=== PATIENT | female | born 1985 | race Caucasian/White ===

== ENCOUNTER 2016-12-23 09:44 | Inpatient (IN) | payer MEDICAID ==
[~2016-12-23] VITALS: Ht 162.6 cm; Wt 146.8 kg
[2016-12-23 12:51] VITALS: BP 130/61
[2016-12-23] MEDS ORDERED: OXYTOCIN 30U/ 0.9% NaCL 500ML 500 ML IV SCH (13:24)
[2016-12-23] MEDS ORDERED: LACTATED RINGERS 1,000 ML IVBOLUS ONE (13:30)
[2016-12-23] MEDS ORDERED: SODIUM CITRATE/CITRIC ACID 30 ML UDC PO ONE (13:30)
[2016-12-23] MEDS ORDERED: LACTATED RINGERS 1,000 ML IV SCH (13:30)
[2016-12-23] MEDS ORDERED: METOCLOPRAMIDE 5 MG/ML, 2ML IV ONE (13:30)
[2016-12-23] MEDS ORDERED: OXYTOCIN 30U/ 0.9% NaCL 500ML 500 ML ONE (13:31)
[2016-12-23] MEDS ORDERED: NEWBORN KIT ONE (13:43)
[2016-12-23] MEDS ORDERED: SODIUM CITRATE/CITRIC ACID 30 ML UDC ONE (13:43)
[2016-12-23] MEDS ORDERED: METOCLOPRAMIDE 5 MG/ML, 2ML ONE (13:43)
[2016-12-23] MEDS ORDERED: FENTANYL PF 100 MCG/2ML ONE (13:45)
[2016-12-23] MEDS ORDERED: HYDROmorphone 2 MG/ML, 1ML ONE (13:46)
[2016-12-23] MEDS: LACTATED RINGERS 1,000 ML IV SCH ×4 (14:13→19:49)
[2016-12-23] MEDS: OXYTOCIN 30U/ 0.9% NaCL 500ML 500 ML IV SCH (19:31)
[2016-12-23] MEDS ORDERED: ONDANSETRON 2MG/ML, 2ML IV PRN (20:00)
[2016-12-23] MEDS ORDERED: DIPH,PERTUSS(ACELL),TET VAC/PF NC IM-VACC PRN (20:00)
[2016-12-23] MEDS ORDERED: MEPERIDINE/PF 50 MG/ML IM PRN (20:00)
[2016-12-23] MEDS ORDERED: METHYLERGONOVINE 0.2 MG/ML IM PRN (20:00)
[2016-12-23 20:34] VITALS: BP 121/72
[2016-12-23] MEDS: OXYcodone/APAP 5/325MG TABLET PO PRN (21:58)
[2016-12-23] MEDS: KETOROLAC 30 MG/1 ML IVPush SCH (22:23)
[2016-12-23] MEDS: SIMETHICONE 80 MG CHEW TAB PO PRN (22:24)
[2016-12-23 23:10] VITALS: BP 118/75
[2016-12-24] MEDS: OXYcodone/APAP 5/325MG TABLET PO PRN (02:12)
[2016-12-24 03:00] VITALS: BP 114/73
[2016-12-24] MEDS: LACTATED RINGERS 1,000 ML IV SCH ×5 (03:31→19:31)
[2016-12-24] MEDS: KETOROLAC 30 MG/1 ML IVPush SCH ×4 (04:34→22:36)
[2016-12-24] MEDS: SIMETHICONE 80 MG CHEW TAB PO PRN ×2 (04:34→20:18)
[2016-12-24] MEDS: OXYTOCIN 30U/ 0.9% NaCL 500ML 500 ML IV SCH ×2 (05:31→15:31)
[2016-12-24] MEDS: OXYcodone IR 5MG TABLET PO PRN ×5 (05:53→20:18)
[2016-12-24 07:03] VITALS: BP 130/73
[2016-12-24] MEDS ORDERED: RHOGAM FROM BLOOD BANK 1 NOTE EA IM/IV ONE (08:30)
[2016-12-24] MEDS: DOCUSATE 100 MG CAPSULE PO PRN ×2 (10:13→20:18)
[2016-12-24] MEDS: PRENATAL VIT/IRON/FA 1 EACH TABLET PO SCH (10:13)
[2016-12-24 12:20] VITALS: BP 130/62
[2016-12-24 19:35] VITALS: BP 113/60
[2016-12-25] MEDS: LACTATED RINGERS 1,000 ML IV SCH ×4 (01:31→11:31)
[2016-12-25] MEDS: OXYTOCIN 30U/ 0.9% NaCL 500ML 500 ML IV SCH ×2 (01:31→11:31)
[2016-12-25] MEDS: OXYcodone IR 5MG TABLET PO PRN ×5 (01:49→21:30)
[2016-12-25] MEDS: KETOROLAC 30 MG/1 ML IVPush SCH ×2 (05:42→12:15)
[2016-12-25 08:10] VITALS: BP 144/93
[2016-12-25] MEDS: PRENATAL VIT/IRON/FA 1 EACH TABLET PO SCH (08:38)
[2016-12-25] MEDS: DOCUSATE 100 MG CAPSULE PO PRN ×2 (08:38→21:30)
[2016-12-25] MEDS: IBUPROFEN 800 MG TABLET PO PRN (17:38)
[2016-12-25 19:20] VITALS: BP 151/87
[2016-12-25 21:30] VITALS: BP 124/66
[2016-12-26] MEDS: OXYcodone IR 5MG TABLET PO PRN ×2 (01:48→07:55)
[2016-12-26] MEDS: IBUPROFEN 800 MG TABLET PO PRN (01:48)
[2016-12-26] MEDS: DOCUSATE 100 MG CAPSULE PO PRN (09:39)
[2016-12-26] MEDS: PRENATAL VIT/IRON/FA 1 EACH TABLET PO SCH (09:39)
[2016-12-26 09:40] VITALS: BP 118/73
[2016-12-26] MEDS ORDERED: IBUP800T PO (13:36)
[2016-12-26] MEDS ORDERED: OXYC-302 PO (13:36)
[2016-12-26] MEDS ORDERED: PREN1TAB28 PO (13:36)
== END 2016-12-26 14:38 | disposition home or self-care (01) | DRG 765 ==
LOC: LDIP 12:37 → 2NW 20:23
PROVIDERS: ADMIT Obstetrics & Gynecology; ATTEND Obstetrics & Gynecology
PROC: 10D00Z1 Extraction of Products of Conception, Low, Open Approach (ICD-10-PCS; principal; 2016-12-23)
PROC: 0UB70ZZ Excision of Bilateral Fallopian Tubes, Open Approach (ICD-10-PCS; 2016-12-23)
PROC: 3E0334Z Introduction of Serum, Toxoid and Vaccine into Peripheral Vein, Percutaneous Approach (ICD-10-PCS; 2016-12-24)
DX: O34.211 Maternal care for low transverse scar from previous cesarean delivery (principal); Z68.43 Body mass index [BMI] 50.0-59.9, adult; Z37.0 Single live birth; O99.214 Obesity complicating childbirth; O99.89 Other specified diseases and conditions complicating pregnancy, childbirth and the puerperium; N73.6 Female pelvic peritoneal adhesions (postinfective); E66.01 Morbid (severe) obesity due to excess calories; Z3A.39 39 weeks gestation of pregnancy; Z30.2 Encounter for sterilization; Z23 Encounter for immunization
CPT/HCPCS: 36415; 85025; 85461; 86850; 86900; 88302; 90715; J1170; J1885; J2790; J3010; J2590; J2765; J7120